=== PATIENT | male | born 1940 | race Caucasian/White ===

== ENCOUNTER 2020-03-11 06:36 | Day surgery (SDC) | payer MEDICARE, OTHER ==
[~2020-03-11] VITALS: Ht 177.8 cm; Wt 59.0 kg
[~2020-03-11 06:36] MED LIST: ACET-1158 PO; ALBU0.5N2 IN; APIX2.5T PO; BUDE1AER4 IN; CLOP75TA41 PO; DOCU-94 PO; FERR18TA2 PO; FURO1TAB31 PO; GABA300C10 PO; METO25TA5 PO; POTA1TAB61 PO; PRAV20TA3 PO; PRE5T PO; SERT-275 PO; SERT50TA PO
[2020-03-11] MEDS ORDERED: VANCOMYCIN HCL 1000 MG VL ONE (07:17)
[2020-03-11] MEDS ORDERED: BACITRACIN INJ 50000 UNIT VIAL ONE (07:18)
[2020-03-11] MEDS ORDERED: fentaNYL CITRATE 100 MCG/2 ML VL ONE (07:18)
[2020-03-11] MEDS ORDERED: MIDAZOLAM HCL 1MG/1ML-2 ML VIAL ONE (07:18)
[2020-03-11] MEDS ORDERED: LIDOCAINE 2%HCL (LOCAL ANESTH.) INJ 20ML MDV ONE (07:18)
[2020-03-11] MEDS ORDERED: VANCOMYCIN 1GM/250ML 250 ML IV ONE (07:18)
[2020-03-11] MEDS ORDERED: ceFAZolin 1GM/50ML 50 ML IV ONE (09:30)
[2020-03-11] MEDS ORDERED: HYDROcodone-ACET 5/325MG TAB PO PRN (09:30)
[2020-03-11] MEDS ORDERED: FLORASTOR (S. BOULARDII) 250 MG CAP PO SCH (09:30)
[2020-03-11] MEDS ORDERED: DOXYCYCLINE 100 MG TAB/CAP PO ONE (09:30)
[2020-03-11] MEDS ORDERED: ACETAMINOPHEN 325 MG TAB PO PRN (09:30)
[2020-03-11] MEDS ORDERED: ONDANSETRON HCL 4 MG/2 ML VIAL ONE (10:40)
== END 2020-03-11 11:10 | disposition home or self-care (01) ==
LOC: CATH 06:36
PROVIDERS: ATTEND Specialist
DX: Z45.010 Encounter for checking and testing of cardiac pacemaker pulse generator [battery] (principal); I11.0 Hypertensive heart disease with heart failure; I50.9 Heart failure, unspecified; E78.5 Hyperlipidemia, unspecified; I25.2 Old myocardial infarction; J44.9 Chronic obstructive pulmonary disease, unspecified; Z87.891 Personal history of nicotine dependence; I73.9 Peripheral vascular disease, unspecified; Z98.890 Other specified postprocedural states; Z79.899 Other long term (current) drug therapy
CPT/HCPCS: 33228; C1785; J0690; J2250; J3010; J3370; J7030; 99152; 99153; J2405